=== PATIENT | male | born 1990 | race American Indian/Alaskan Native ===

== ENCOUNTER 2021-02-02 20:41 | Emergency (ER) | payer OTHER ==
[2021-02-02] MEDS ORDERED: oxyCODONE /ACETAMINOPHEN 5-325MG TAB PO ONE (21:08)
[2021-02-02] MEDS ORDERED: ONDANSETRON 4 MG ODT TAB PO ONE (21:08)
[2021-02-02] MEDS ORDERED: TETANUS,DIPH,PERTUSS(ACELL) VACCINE 0.5 ML SYRINGE IM ONE (21:08)
[2021-02-02] MEDS ORDERED: IBUPROFEN 600 MG TAB PO ONE (21:08)
[2021-02-02] MEDS ORDERED: LIDOCAINE (1%) 10 MG/1 ML VIAL 20 ML MDV INFILTRATI ONE (21:08)
--- NOTE | 2021-02-03 00:18 | Ultrasound Report ---
ULTRASOUND SCROTUM INDICATION / CLINICAL INFORMATION: Left testicular laceration. COMPARISON: None available. FINDINGS -- RIGHT: TESTIS: Size = 4.6 x 2.1 x 2.8 cm. - Appearance: No significant abnormality. - Cyst / Mass: None. - Color Doppler Flow: No significant abnormality. EPIDIDYMIS: No significant abnormality. HYDROCELE: None. VARICOCELE: None demonstrated. FINDINGS -- LEFT: TESTIS: Size = 4.5 x 1.8 x 3.2 cm. - Appearance: No significant abnormality. - Cyst / Mass: None. - Color Doppler Flow: No significant abnormality. EPIDIDYMIS: No significant abnormality. HYDROCELE: Small. VARICOCELE: None demonstrated. ADDITIONAL FINDINGS: None. IMPRESSION: 1. Small left hydrocele. 2. No scrotal soft tissue fluid collection. 3. Normal testicular blood flow. Signer Name: Hailey Chris MD Signed: 02/03/2021 12:14 AM Workstation Name: [id number]
--- NOTE | 2021-02-03 00:44 | Emergency Department Report ---
ED Male HPI - General Chief complaint: Wound/Laceration Stated complaint: CUT ON PRIVATE AREA Source: patient Mode of arrival: Ambulatory Limitations: No Limitations - History of Present Illness Initial comments: Patient is a 30-year-old -[place] male with no past medical history presents to the ED with complaint of acute onset persistent severe left testicular pain left scrotal bleeding laceration after an alleged HVAC unit that was pulling fell on him hit his left groin about 2 hours ago. Patient states that he thereafter noticed extensive bleeding under his clots. Patient states that the pain has been constant and persistent especially with any movement. Patient states that he is not up-to-date with his tetanus vaccinations. Patient denies loss of consciousness, hematuria, dysuria, chest pain or shortness of breath, head or neck injuries, dizziness, syncope, physical assault, penile discharge, back pain, hip pain, numbness and tingling or weakness of lower extremities bilaterally. MD Complaint: testicle pain (Left testicular pain), genital injury (Left testicular injury), other (Left scrotal laceration) -: Sudden, hour(s) (2) Location: left testicle Radiation: none Severity: severe Severity scale (0 -10): 8 Quality: aching, sharp Consistency: constant Improves with: none Worsens with: palpation, movement trauma (States that an HVAC dropped on his groin, causing left scrotal laceration) denies other symptoms. denies: discharge, swelling, mass, rash, urinary retention, blood in urine, fever, nausea/vomiting, incontinence, other - Related Data Sexually active: Yes Previous Rx's Medication Instructions Recorded Last Taken Type Acetaminophen/Codeine [Tylenol 1 tab PO Q6H PRN #12 tab 02/03/21 Unknown Rx /Codeine # 3 tab] Ibuprofen [Motrin] 800 mg PO Q8HR PRN #30 tablet 02/03/21 Unknown Rx Sulfamethoxazole/Trimethoprim 1 each PO Q12H #20 tablet 02/03/21 Unknown Rx [Bactrim DS TAB] Allergies Allergy/AdvReac Type Severity Reaction Status Date / Time No Known Allergies Allergy Unverified 02/02/21 20:56 ED Review of Systems ROS: Stated complaint: CUT ON PRIVATE AREA Other details as noted in HPI Constitutional: denies: chills, fever Eyes: denies: eye pain, eye discharge, vision change ENT: denies: ear pain, throat pain Respiratory: denies: cough, shortness of breath, wheezing Cardiovascular: denies: chest pain, palpitations Endocrine: no symptoms reported Gastrointestinal: denies: abdominal pain, nausea, diarrhea Genitourinary: testicular pain (Left testicular and scrotal pain due to an extensive left scrotum laceration and bleeding). denies: urgency, dysuria Musculoskeletal: denies: back pain, joint swelling, arthralgia Skin: other (Bleeding left scrotal laceration). denies: rash, lesions Neurological: denies: headache, weakness, paresthesias Psychiatric: denies: anxiety, depression Hematological/Lymphatic: denies: easy bleeding, easy bruising ED Past Medical Hx - Past Medical History Previous Medical History?: No - Surgical History Past Surgical History?: No - Medications Home Medications: Home Medications Medication Instructions Recorded Confirmed Last Taken Type Acetaminophen/Codeine [Tylenol 1 tab PO Q6H PRN #12 tab 02/03/21 Unknown Rx /Codeine # 3 tab] Ibuprofen [Motrin] 800 mg PO Q8HR PRN #30 tablet 02/03/21 Unknown Rx Sulfamethoxazole/Trimethoprim 1 each PO Q12H #20 tablet 02/03/21 Unknown Rx [Bactrim DS TAB] ED Physical Exam - General Limitations: No Limitations General appearance: alert, in no apparent distress - Head Head exam: Present: atraumatic, normocephalic, normal inspection - Eye Eye exam: Present: normal appearance, PERRL, EOMI Pupils: Present: normal accommodation - ENT ENT exam: Present: normal exam, normal orophraynx, mucous membranes moist, TM's normal bilaterally, normal external ear exam - Neck Neck exam: Present: normal inspection, full ROM - Respiratory Respiratory exam: Present: normal lung sounds bilaterally. Absent: respiratory distress, wheezes, rhonchi, stridor, chest wall tenderness, accessory muscle use, decreased breath sounds - Cardiovascular Cardiovascular Exam: Present: regular rate, normal rhythm, normal heart sounds. Absent: systolic murmur, diastolic murmur, rubs, gallop - GI/Abdominal GI/Abdominal exam: Present: soft, normal bowel sounds. Absent: tenderness, guarding, rebound, hyperactive bowel sounds, hypoactive bowel sounds, organomegaly - exam: Present: testicular tenderness (Left testicular tenderness), circumcision, other (Normal cremasteric reflex) External exam: Present: lacerations (Bleeding 12 cm left scrotum laceration wound), bleeding (Bleeding 12 cm left scrotum laceration wound), other (Left testicular tenderness due to a bleeding left scrotal 12 cm laceration wound) - Extremities Exam Extremities exam: Present: normal inspection, full ROM, normal capillary refill. Absent: pedal edema, joint swelling, calf tenderness - Back Exam Back exam: Present: normal inspection, full ROM. Absent: tenderness, CVA tenderness (R), CVA tenderness (L), muscle spasm, paraspinal tenderness - Neurological Exam Neurological exam: Present: alert, oriented X3, CN II-XII intact, normal gait, reflexes normal - Psychiatric Psychiatric exam: Present: normal affect, normal mood - Skin Skin exam: Present: warm, dry, intact, normal color. Absent: rash ED Course Vital Signs 02/02/21 20:56 Temperature 98.2 F Pulse Rate 78 Respiratory 19 Rate Blood Pressure 133/91 [Right] O2 Sat by Pulse 97 Oximetry - Laceration /Wound Repair Left Scrotum Wound Location: pelvis (Left scrotal bleeding laceration) Wound Length (cm): 12 Wound's Depth, Shape: superficial, linear Wound Explored: contaminated Irrigated w/ Saline (ccs): 500 Betadine Prep?: Yes Anesthesia: 1% Lidocaine Volume Anesthetic (ccs): 10 Wound Debrided: extensive Wound Repaired With: sutures Suture Size/Type: 5:0, proline Number of Sutures: 28 Layer Closure?: No Sterile Dressing Applied?: Yes Progress: The wound was cleaned extensively with normal saline, Betadine solution and 1% lidocaine solution used for anesthesia. When anesthesia was fully achieved, the wound was sutured per protocol and the patient tolerated the procedure well. Patient was thereafter discharged home on antibiotics and pain medications. Patient was advised return to the ED in 1214 days for suture removal or return to the ED immediately if symptoms get worse. ED Medical Decision Making - Radiology Data Radiology results: report reviewed, image reviewed [facility] [address] [place] [address] Ultrasound Report Signed Patient: PORTER RAWLS III MR#: [id number] : 1990 Acct:[id number] Age/Sex: 30 / M ADM Date: 02/02/21 Loc: ED Attending Dr: Ordering Physician: HIEU RICO Date of Service: 02/02/21 Procedure(s): US testicular doppler comp Accession Number(s): [id number] cc: HIEU RICO ULTRASOUND SCROTUM INDICATION / CLINICAL INFORMATION: Left testicular laceration. COMPARISON: None available. FINDINGS -- RIGHT: TESTIS: Size = 4.6 x 2.1 x 2.8 cm. - Appearance: No significant abnormality. - Cyst / Mass: None. - Color Doppler Flow: No significant abnormality. EPIDIDYMIS: No significant abnormality. HYDROCELE: None. VARICOCELE: None demonstrated. FINDINGS -- LEFT: TESTIS: Size = 4.5 x 1.8 x 3.2 cm. - Appearance: No significant abnormality. - Cyst / Mass: None. - Color Doppler Flow: No significant abnormality. EPIDIDYMIS: No significant abnormality. HYDROCELE: Small. VARICOCELE: None demonstrated. ADDITIONAL FINDINGS: None. IMPRESSION: 1. Small left hydrocele. 2. No scrotal soft tissue fluid collection. 3. Normal testicular blood flow. Signer Name: Hailey Chris MD Signed: 02/03/2021 12:14 AM Workstation Name: [id number] Transcribed By: DT Dictated By: Alber Chris MD Electronically Authenticated By: Alber Chris MD Signed Date/Time: 02/03/2113 DD/ TD/TT: Print Cancel - Medical Decision Making This is a 30-year-old -[place] male with no past medical history presents to the ED with complaint of acute onset persistent severe left testicular pain left scrotal bleeding laceration after an alleged HVAC unit that was pulling fell on him hit his left groin about 2 hours ago. Patient states that he thereafter noticed extensive bleeding under his clots. Patient states that the pain has been constant and persistent especially with any movement. Patient states that he is not up-to-date with his tetanus vaccinations. In the ED, patient is alert and oriented x3 and is not in any distress. Patient was treated for pain in the ED and also received booster tetanus vaccinations. The left scrotal bleeding laceration was cleaned and extensively debrided with normal saline solution and Betadine solution. Lidocaine 1% solution was used as anesthetic in the left scrotal laceration. When anesthesia was fully achieved, the wound was sutured per protocol and the patient tolerated procedure well. The testicular ultrasound showed no acute abnormalities, torsion and the blood flow is normal bilaterally. On reevaluation, patient's pain is well controlled medication, patient is fully ambulatory in the ED with no difficulty, he is also neurovascularly intact and hemodynamically stable. Patient was discharged home on pain medication and prophylactic antibiotics and advised to follow-up with his primary care physician in 7 to 10 days for reevaluation or return to the ED immediately if symptoms get worse. Patient was otherwise advised to return to the ED in 12 to 14 days for suture removal. - Differential Diagnosis Testicular torsion; testicular injury; scrotal laceration; Critical care attestation.: If time is entered above; I have spent that time in minutes in the direct care of this critically ill patient, excluding procedure time. ED Disposition Clinical Impression: Scrotal laceration Qualifiers: Encounter type: initial encounter Qualified Code(s): S31.31XA - Laceration without foreign body of scrotum and testes, initial encounter Testicular injury Qualifiers: Encounter type: initial encounter Qualified Code(s): S39.94XA - Unspecified injury of external genitals, initial encounter Disposition: TO HOME OR SELFCARE Is pt being admited?: No Does the pt Need Aspirin: No Condition: Stable Instructions: Sutured Wound Care, [id number], Sutures, Franko, or Adhesive Wound Closure, [id number] Additional Instructions: The left testicular ultrasound showed no acute abnormalities or torsion. Therefore take medication with food, drink plenty of fluids and follow-up with your primary care physician in 7 to 10 days for reevaluation. Return to the ED immediately if symptoms get worse. Otherwise return to the ED or your primary care physician in 12 to 14 days for suture removal. Prescriptions: Sulfamethoxazole/Trimethoprim [Bactrim DS TAB] 1 each PO Q12H #20 tablet Ibuprofen [Motrin] 800 mg PO Q8HR PRN #30 tablet PRN Reason: Pain , Severe (7-10) Acetaminophen/Codeine [Tylenol /Codeine # 3 tab] 1 tab PO Q6H PRN #12 tab PRN Reason: Pain , Severe (7-10) Referrals: [facility] [Provider Group] - 3-5 Days Forms: Work/School Release Form(ED) Time of Disposition: 00:41 Print Language: KAZAKH
[2021-02-03 01:28] VITALS: BP 128/85
== END 2021-02-03 01:30 | disposition home or self-care (01) ==
LOC: ED 20:41
DX: S31.31XA Laceration without foreign body of scrotum and testes, initial encounter (principal); S39.94XA Unspecified injury of external genitals, initial encounter; X58.XXXA Exposure to other specified factors, initial encounter; Y93.89 Activity, other specified; Y92.89 Other specified places as the place of occurrence of the external cause; Y99.8 Other external cause status
CPT/HCPCS: 90471; 90715; 93975; Q0162

== ENCOUNTER 2021-02-13 01:28 | Emergency (ER) | payer OTHER | END 2021-02-13 01:50 | disposition left against medical advice (07) | LOC: ED 01:28 | DX: T14.8XXA Other injury of unspecified body region, initial encounter (principal); Z53.21 Procedure and treatment not carried out due to patient leaving prior to being seen by health care provider; X58.XXXA Exposure to other specified factors, initial encounter; Y93.89 Activity, other specified; Y92.89 Other specified places as the place of occurrence of the external cause; Y99.8 Other external cause status ==